=== PATIENT | male | born 1960 | race Asian ===

== ENCOUNTER 2017-02-13 20:48 | Emergency (ER) | payer MEDICARE ==
[~2017-02-13] VITALS: Ht 167.6 cm; Wt 80.0 kg
[2017-02-13 20:53] VITALS: Ht 167.6 cm; Wt 80.0 kg
[2017-02-13] MEDS ORDERED: OLANZAPINE (ODT) 5 MG TAB PO STA (21:33)
[2017-02-13] MEDS ORDERED: LORAZEPAM 1 MG TAB PO ONE (22:00)
[2017-02-13 22:09] LABS: BASOPHIL # 0.1 10^3/ul (0.0-0.1); BASOPHILS % 0.7 % (0.0-2.0); EOSINOPHILS # 0.1 10^3/ul (0.0-0.5); EOSINOPHILS % 1.9 % (0.0-7.0); HEMATOCRIT 41.4 % (42.0-52.0); HEMOGLOBIN 13.6 g/dl (14.0-18.0); LYMPHOCYTES # 2.5 10^3/ul (0.8-2.9); MEAN CORPUSCULAR HEMOGLOBIN 28.1 pg (29.0-33.0); MEAN CORPUSCULAR HGB CONC 32.9 g/dl (32.0-37.0); MEAN CORPUSCULAR VOLUME 85.5 fl (82.0-101.0); MEAN PLATELET VOLUME 9.9 fl (7.4-10.4); MONOCYTE # 0.6 10^3/ul (0.3-0.9); NEUTROPHILS % 55.3 % (39.0-77.0); PLATELET COUNT 254 10^3/UL (140-415); RED BLOOD COUNT 4.84 10^6/ul (4.70-6.10); RED CELL DISTRIBUTION WIDTH 12.9 % (11.5-14.5); WHITE BLOOD COUNT 7.3 10^3/ul (4.8-10.8)
[2017-02-13 22:33] LABS: ALANINE AMINOTRANSFERASE 78 IU/L (13-69); ALBUMIN 4.3 g/dl (3.3-4.9); ALBUMIN/GLOBULIN RATIO 1.38; ALKALINE PHOSPHATASE 66 IU/L (42-121); ANION GAP 17 (8-16); ASPARTATE AMINO TRANSFERASE 111 IU/L (15-46); BILIRUBIN,INDIRECT 0.3 mg/dl (0-1.1); BILIRUBIN,TOTAL 0.3 mg/dl (0.2-1.3); BLOOD UREA NITROGEN 6 mg/dl (7-20); CALCIUM 9.1 mg/dl (8.4-10.2); CARBON DIOXIDE 25 mmol/L (21-31); CHLORIDE 105 mmol/L (97-110); CREATININE 0.88 mg/dl (0.61-1.24); GLUCOSE 178 mg/dl (70-220); POTASSIUM 3.4 mmol/L (3.5-5.1); SODIUM 144 mmol/L (135-144); TOTAL PROTEIN 7.4 g/dl (6.1-8.1)
[2017-02-13 22:45] LABS: ETHANOL < 10.0 mg/dl
--- NOTE | 2017-02-13 22:52 | ERD ---
ER Documentation Chief Complaint Date/Time DATE: 02/13/17 TIME: 22:49 Chief Complaint rambling, but able to state where is his/name/time/situation- psych history HPI 57-year-old male brought in by ambulance for strange behavior. Bystanders called 911 when they saw him acting strange and saying things that did not make sense. Per EMS, the patient was alert and oriented and answering their questions. Here the patient is not answering any of my questions and stating " I plead the fifth". He seems very paranoid and is making statements that do not make sense. History is thus limited. ROS All systems reviewed and are negative except as per history of present illness. Allergies Allergies: Coded Allergies: No Known Drug Allergies (Verified Allergy, Mild, 03/01/10) PMhx/Soc History of Surgery: No Anesthesia Reaction: No Hx Neurological Disorder: No Hx Respiratory Disorders: No Hx Cardiac Disorders: No Hx Psychiatric Problems: Yes (SCHIZOPHRENIA) Hx Miscellaneous Medical Probl: No Hx Alcohol Use: No (denies) Hx Substance Use: No (denies) Hx Tobacco Use: No (denies) Smoking Status: Never smoker FmHx Family History: other (Unable to obtain) Physical Exam Vitals Vital Signs Date Time Temp Pulse Resp B/P Pulse Ox O2 Delivery O2 Flow Rate FiO2 02/14/17 02:30 96.6 58 16 115/70 98 Room Air 02/14/17 00:02 66 16 97 02/13/17 20:53 98.2 78 17 154/78 97 Physical Exam Const: No apparent distress, unkempt Head: Atraumatic Eyes: PERRLA ENT: Normal External Ears, Nose and Mouth. Neck: Full range of motion.. No swelling Resp: No respiratory distress Skin: No petechiae or rashes Ext: No cyanosis, or edema Neur: Awake and alert Psych: Paranoid mood and strange affect, rambling speech, speech content does not make sense Result Diagram: 02/13/17215002/13/172150 Results 24 hrs Laboratory Tests Test 02/13/17 21:51 02/14/17 01:00 White Blood Count 7.310^3/ul Red Blood Count 4.8410^6/ul Hemoglobin 13.6g/dl Hematocrit 41.4% Mean Corpuscular Volume 85.5fl Mean Corpuscular Hemoglobin 28.1pg Mean Corpuscular Hemoglobin Concent 32.9g/dl Red Cell Distribution Width 12.9% Platelet Count 33321^3/UL Mean Platelet Volume 9.9fl Neutrophils % 55.3% Lymphocytes % 34.0% Monocytes % 8.0% Eosinophils % 1.9% Basophils % 0.7% Nucleated Red Blood Cells % 0.0/100WBC Neutrophils # 4.010^3/ul Lymphocytes # 2.510^3/ul Monocytes # 0.610^3/ul Eosinophils # 0.110^3/ul Basophils # 0.110^3/ul Nucleated Red Blood Cells # 0.010^3/ul Sodium Level 144mmol/L Potassium Level 3.4mmol/L Chloride Level 105mmol/L Carbon Dioxide Level 25mmol/L Anion Gap 17 Blood Urea Nitrogen 6mg/dl Creatinine 0.88mg/dl Glucose Level 178mg/dl Calcium Level 9.1mg/dl Total Bilirubin 0.3mg/dl Direct Bilirubin 0.00mg/dl Indirect Bilirubin 0.3mg/dl Aspartate Amino Transf (AST/SGOT) 111IU/L Alanine Aminotransferase (ALT/SGPT) 78IU/L Alkaline Phosphatase 66IU/L Total Protein 7.4g/dl Albumin 4.3g/dl Globulin 3.10g/dl Albumin/Globulin Ratio 1.38 Ethyl Alcohol Level < 10.0mg/dl Urine Color YELLOW Urine Clarity CLEAR Urine pH 6.0 Urine Specific Sax[place] 1.014 Urine Ketones TRACEmg/dL Urine Nitrite NEGATIVEmg/dL Urine Bilirubin NEGATIVEmg/dL Urine Urobilinogen NEGATIVEmg/dL Urine Leukocyte Esterase NEGATIVELeu/ul Urine Microscopic RBC 0/HPF Urine Microscopic WBC 0/HPF Urine Hemoglobin NEGATIVEmg/dL Urine Glucose 3+mg/dL Urine Total Protein 1+mg/dl Urine Opiates Screen Negative Urine Barbiturates Negative Urine Amphetamines Screen Negative Urine Benzodiazepines Screen Negative Urine Cocaine Screen Negative Urine Cannabinoids Positive Current Medications Medications (Trade) Dose Ordered Sig/Stephon Route PRN Reason Start Time Stop Time Status Last Admin Dose Admin Olanzapine (Zyprexa Zydis) 10 mg ONCE STAT PO 02/13/17 21:33 02/13/17 21:35 DC 02/13/17 22:29 Lorazepam (Ativan) 1 mg ONCE ONCE PO 02/13/17 22:00 02/13/17 22:01 DC 02/13/17 22:21 Lorazepam (Ativan) 1 mg ONCE ONCE PO 02/14/17 03:30 02/14/17 03:31 DC 02/14/17 03:32 Procedures/MDM Labs CBC: no anemia or evidence of infection CMP: No evidence of electrolyte abnormality, renal failure, hypoglycemia. Mild transaminitis Alcohol level negative Urine drug screen positive for cannabinoids UA: no evidence of infection MDM Patient is presenting with what seems to be acute psychosis, possibly drug- induced. However it seems he has an underlying mental health problem. Patient' s vitals are stable and he does not seem to have any medical issues going on. I had him evaluated by tele-psychiatry and the doctor determined the patient needs to be placed on a 5150 hold for grave disability. I gave the patient Zyprexa and Ativan with minimal improvement in his symptoms. I have a low suspicion for an acute intracranial process at this time. Patient is awaiting PET evaluation for 5150, then will need transfer to a psychiatric facility. He told a psychiatrist that he is taking lithium, so lithium level was ordered and is pending. Departure Diagnosis: Primary Impression: Psychological disorder Condition: Serious Patient Instructions: Psychosis Referrals: COMM[facility]ITY CLIN[facility] YOU HAVE RECEIVED A MEDICAL SCREENING EXAM AND THE RESULTS INDICATE THAT YOU DO NOT HAVE A CONDITION THAT REQUIRES URGENT TREATMENT IN THE EMERGENCY DEPARTMENT. FURTHER EVALUATION AND TREATMENT OF YOUR CONDITION CAN WAIT UNTIL YOU ARE SEEN IN YOUR DOCTORS OFFICE WITHIN THE NEXT 1-2 DAYS. IT IS YOUR RESPONSIBILITY TO MAKE AN APPOINTMENT FOR FOLOW-UP CARE. IF YOU HAVE A PRIMARY DOCTOR --you should call your primary doctor and schedule an appointment IF YOU DO NOT HAVE A PRIMARY DOCTOR YOU CAN CALL OUR PHYSICIAN REFERRAL HOTLINE AT IF YOU CAN NOT AFFORD TO SEE A PHYSICIAN YOU CAN CHOSE FROM THE FOLLOWING [facility] [address] [facility] [address] [facility] [address] [facility] [address] [facility] [address] [place] [facility]. [address] Additional Instructions: Follow up with your psychiatrist tomorrow. AMBER JACKSON MD Feb 13, 2017 22:52
[2017-02-14 01:38] LABS: ADD UMIC YES; UR ASCORBIC ACID NEGATIVE (NEGATIVE); UR BILIRUBIN (Dip) NEGATIVE (NEGATIVE); UR BLOOD (Dip) NEGATIVE (NEGATIVE); UR CLARITY CLEAR (CLEAR); UR COLOR YELLOW (YELLOW); UR GLUCOSE (Dip) 3+ mg/dL (NEGATIVE); UR KETONES (Dip) TRACE mg/dL (NEGATIVE); UR LEUKOCYTE ESTERASE (Dip) NEGATIVE Leu/ul (NEGATIVE); UR NITRITE (Dip) NEGATIVE (NEGATIVE); UR RBC 0 /HPF (0-5); UR SPECIFIC GRAVITY (Dip) 1.014 (1.003-1.030); UR TOTAL PROTEIN (Dip) 1+ mg/dl (NEGATIVE); UR UROBILINOGEN (Dip) NEGATIVE (NEGATIVE)
[2017-02-14 02:06] LABS: BARBITURATES Negative (NEGATIVE); BENZODIAZEPINES Negative (NEGATIVE); CANNABINOIDS Positive (NEGATIVE); COCAINE Negative (NEGATIVE); OPIATES Negative (NEGATIVE)
[2017-02-14] MEDS ORDERED: LORAZEPAM 1 MG TAB PO ONE (03:30)
--- NOTE | 2017-02-14 03:31 | PSY ---
Date/Time of Note Date/Time of Note DATE: 02/14/17 TIME: 03:30 Psychiatric Subjective Eval Consent Pt consented to telemedicine: Yes Subjective Evaluation Patient location: emergency Chief Complaint: rambling, but able to state where is his/name/time/situation- psych history Medical history Problems Medical Problems: (1) Psychological disorder Status: Acute Allergies: Coded Allergies: No Known Drug Allergies (Verified Allergy, Mild, 03/01/10) Psychiatric Objective Eval Mental Status Examination: Laboratory Results Laboratory Tests Test 02/13/17 21:51 02/14/17 01:00 White Blood Count 7.310^3/ul Red Blood Count 4.8410^6/ul Hemoglobin 13.6g/dl Hematocrit 41.4% Mean Corpuscular Volume 85.5fl Mean Corpuscular Hemoglobin 28.1pg Mean Corpuscular Hemoglobin Concent 32.9g/dl Red Cell Distribution Width 12.9% Platelet Count 19414^3/UL Mean Platelet Volume 9.9fl Neutrophils % 55.3% Lymphocytes % 34.0% Monocytes % 8.0% Eosinophils % 1.9% Basophils % 0.7% Nucleated Red Blood Cells % 0.0/100WBC Neutrophils # 4.010^3/ul Lymphocytes # 2.510^3/ul Monocytes # 0.610^3/ul Eosinophils # 0.110^3/ul Basophils # 0.110^3/ul Nucleated Red Blood Cells # 0.010^3/ul Sodium Level 144mmol/L Potassium Level 3.4mmol/L Chloride Level 105mmol/L Carbon Dioxide Level 25mmol/L Anion Gap 17 Blood Urea Nitrogen 6mg/dl Creatinine 0.88mg/dl Glucose Level 178mg/dl Calcium Level 9.1mg/dl Total Bilirubin 0.3mg/dl Direct Bilirubin 0.00mg/dl Indirect Bilirubin 0.3mg/dl Aspartate Amino Transf (AST/SGOT) 111IU/L Alanine Aminotransferase (ALT/SGPT) 78IU/L Alkaline Phosphatase 66IU/L Total Protein 7.4g/dl Albumin 4.3g/dl Globulin 3.10g/dl Albumin/Globulin Ratio 1.38 Ethyl Alcohol Level < 10.0mg/dl Urine Color YELLOW Urine Clarity CLEAR Urine pH 6.0 Urine Specific [place] 1.014 Urine Ketones TRACEmg/dL Urine Nitrite NEGATIVEmg/dL Urine Bilirubin NEGATIVEmg/dL Urine Urobilinogen NEGATIVEmg/dL Urine Leukocyte Esterase NEGATIVELeu/ul Urine Microscopic RBC 0/HPF Urine Microscopic WBC 0/HPF Urine Hemoglobin NEGATIVEmg/dL Urine Glucose 3+mg/dL Urine Total Protein 1+mg/dl Urine Opiates Screen Negative Urine Barbiturates Negative Urine Amphetamines Screen Negative Urine Benzodiazepines Screen Negative Urine Cocaine Screen Negative Urine Cannabinoids Positive Assessment Additional comments: IDENTIFYING INFORMATION: 57 year old Male patient who is currently located at the hospital and for whom psychiatric consultation was requested. SOURCES OF INFORMATION: The patient who appears to be unreliable and the medical records; the nursing staff. CHIEF COMPLAINT: "one, two, three, four, five, six". HISTORY OF PRESENT ILLNESS: The patient was interviewed via telemedicine in the presence of and under the supervision of nursing staff of the hospital. The consent to conducting this interview via telemedicine was obtained by the nursing staff at the hospital. KADI Almaguer reports that the pt exhibited bizarre behavior at a store, saying that the [place] is in war. Per ER doc note, the patient was brought in by ambulance after 911 was called because the pt was exhibiting bizarre behavior. The patient would refuse to answer any questions to the emergency room physician, stating I plead the fifth . He appeared to be very paranoid and making nonsensical statements. Is not on a hold. Received Ativan and Zyprexa while in the ER. The patient was not able to participate in the interview In a very appropriate manner due to psychosis. He got upset several times during the interview, and decided to terminate the interview. The patient reports that he hears voices, then says that he does not hear voices. The patient reports drinking 1 drink per occasion. Does not drink everyday. Last drink was today. PAST MEDICAL HISTORY: Unable to assess, because the patient was not able to participate in the interview. CURRENT MEDICATIONS: lithium, unknown medication. ALLERGIES TO MEDICATIONS: Unable to assess, because the patient was not able to participate in the interview. SOCIAL HISTORY: Unable to assess, because the patient was not able to participate in the interview. LABORATORY TESTS: UDS positive for cannabinoids, urinalysis positive for glucose, protein; CBC with hemoglobin of 13.6, hematocrit 41.4, CMP with potassium of 3.4, AST 111 , ALT 78, alcohol was not detected. FAMILY HISTORY: Unable to assess, because the patient was not able to participate in the interview. REVIEW OF SYSTEMS: Unable to assess, because the patient was not able to participate in the interview. MENTAL STATUS EXAMINATION: General Appearance and Behavior: Agitated, appears to be responding to internal stimuli, uncooperative with most of the interview, distant and rude with the current interviewer, makes poor eye contact, poorly groomed, somewhat increased psychomotor activity, no abnormal movements noted. Speech: Normal rate, regular rhythm, increased latency, normal volume, decreased amount. Flow of thought: tangential, illogical, not goal-directed. Content of thought: positive for bizarre delusions; unable to assess further. Mood: Unable to assess, because the patient was not able to participate in the interview.. Affect: agitated, angry, flat, decreased range of reactivity. Attention: normal based on the interview. Insight: poor. Judgment: poor. Memory: Unable to assess, because the patient was not able to participate in the interview. Sensorium: alert and oriented to person, ccould not evaluate further. ASSESSMENT: The patient's presentation and history are consistent with the diagnosis of unspecified psychotic disorder. The patient presents with psychotic symptoms in the context of possible medication noncompliance. Afton I: unspecified psychotic disorder. Afton II: Deferred. Afton III: see PMH. Afton IV: social stressors. Afton V: GAF: 10. PLAN: - Medication management: Would start Zyprexa 5 mg by mouth twice a day, next dose to be administered at 8 AM on February 14 ( the patient already received 10 mg of Zyprexa by mouth while in the emergency room). Would start haloperidol 5 mg IM PRN severe agitation q4 hours. Would start diphenhydramine 50 mg IM PRN severe agitation q4 hours. Would start lorazepam 2 mg IM PRN severe agitation q4 hours Will defer to the inpatient psychiatry team for other medication changes. - Labs: please check lithium level. - Psychotherapy: Provided supportive psychotherapy and psychoeducation. - Disposition: Would recommend involuntary admission to the inpatient psychiatric unit given the severity of the patient's psychiatric condition and the fact that the patient is an imminent danger to self and/or others so long as the patient has been cleared medically for admission to psychiatry. Inpatient psychiatric admission is at this time the least restrictive environment where the patient can receive the psychiatric care that is needed. Would place on suicide precautions. The patient fulfills criteria for being placed on involuntary hold due to being a danger to self or others or gravely disabled. Discussed about the above plan with Dr. Johnson. JULIO FULTON MD Feb 14, 2017 03:31
[2017-02-14] MEDS ORDERED: LORAZEPAM 2 MG INJ ONE (04:26)
[2017-02-14] MEDS ORDERED: DIPHENHYDRAMINE 50 MG INJ IM ONE (04:30)
[2017-02-14] MEDS ORDERED: LORAZEPAM 2 MG INJ IM ONE ×2 (04:30→09:30)
[2017-02-14 09:00] VITALS: BP 147/88; PULSE 86; RESP 20; TEMP 98.3
== END 2017-02-14 14:49 ==
LOC: E/R 20:48
DX: F99 Mental disorder, not otherwise specified (principal)
CPT/HCPCS: 36415; 80053; 80178; 80306; 80307; 81001; 85025; 96372; 99285; J1200; J2060

== ENCOUNTER 2017-03-02 03:47 | Emergency (ER) | payer MEDICARE ==
[~2017-03-02] VITALS: Ht 172.7 cm; Wt 68.5 kg
[2017-03-02 03:55] VITALS: Ht 172.7 cm; Wt 68.5 kg
--- NOTE | 2017-03-02 04:53 | ERD ---
ER Documentation Chief Complaint Date/Time DATE: 03/02/17 TIME: 04:51 Chief Complaint nis toenails are bothering rite now, hx DM&depression HPI This is a 57-year-old male with past medical history for schizophrenia, diabetes and hypercholesterolemia, presents to the ER needing medication refill. Patient states he has been living in a psychiatric community and has been out of his medication for the last 2 weeks. Patient has also lost his glucometer test strips with lancets and states he needs refill of that as well. No complaints at this time. ROS All systems reviewed and are negative except as per history of present illness. Medications Home Meds Active Scripts Lancets (Blood Lancets) 1 Each Each, 1 EACH MC, #30 Prov:SOLOMON CASTANO NP 03/02/17 Lancing Device/Lancets (Accu-Chek Multiclix Lancet Kit) 1 Each Kit, 1 EACH MC, # 1 Prov:SOLOMON CASTANO NP 03/02/17 Blood-Glucose Meter (Advanced Glucose Meter) 1 Each Each, 1 EACH MC, #1 Prov:SOLOMON CASTANO NP 03/02/17 Aspirin* (Aspirin* EC) 81 Mg Tablet.dr, 81 MG PO DAILY, #15 TAB Prov:SOLOMON CASTANO NP 03/02/17 Metformin* (Glucophage*) 1,000 Mg Tablet, 1000 MG PO DAILY, #15 TAB Prov:SOLOMON CASTANO NP 03/02/17 Atorvastatin Calcium (Atorvastatin Calcium) 10 Mg Tablet, 5 MG PO QHS, #15 TAB Prov:SOLOMON CASTANO NP 03/02/17 Aripiprazole* (Abilify*) 15 Mg Tablet, 15 MG PO DAILY, #15 TAB Prov:SOLOMON CASTANO NP 03/02/17 Allergies Allergies: Coded Allergies: No Known Drug Allergies (Verified Allergy, Mild, 03/01/10) PMhx/Soc History of Surgery: No Anesthesia Reaction: No Hx Neurological Disorder: No Hx Respiratory Disorders: No Hx Cardiac Disorders: No Hx Psychiatric Problems: Yes (SCHIZOPHRENIA) Hx Miscellaneous Medical Probl: No Hx Alcohol Use: No (denies) Hx Substance Use: No (denies) Hx Tobacco Use: Yes Smoking Status: Current every day smoker Physical Exam Vitals Vital Signs Date Time Temp Pulse Resp B/P Pulse Ox O2 Delivery O2 Flow Rate FiO2 03/02/17 03:55 98.5 85 18 138/72 99 Physical Exam Const: Alert, no acute distress Head: Atraumatic Eyes: Normal Conjunctiva ENT: Normal External Ears, Nose and Mouth. Neck: Full range of motion..~ No meningismus. Resp: Clear to auscultation bilaterally Cardio: Regular rate and rhythm, no murmurs Abd: Soft, non tender, non distended. Normal bowel sounds Skin: No petechiae or rashes Back: No midline or flank tenderness Ext: No cyanosis, or edema Neur: Awake and alert Psych: Normal Mood and Affect Procedures/MDM MDM: This is a 57-year-old male, with past medical history for diabetes mellitus , depression and schizophrenia, presenting to emergency department for medication refill. Patient states he is out of Abilify 15 mg, atorvastatin 5 mg , metformin 1000 mg, aspirin 81 mg and Topamax however he does not know the dosage of this medication. Patient also states he needs refill of glucometer, test strips, lancets and alcohol wipes. Patient has no complaints at this time. Patient's vitals are stable. Appears to be asymptomatic. Patient is appropriate for outpatient management will be given prescriptions for Abilify, atorvastatin, metformin and aspirin. Patient also be given prescription for glucometer, test strips and lancets. Instructed patient to follow-up with primary care provider in the next 2-3 days for reassessment. Resources provided with discharge paperwork. Return to ED for any high fever, chest pain, difficulty breathing, shortness breath, wheezing, vomiting, diarrhea , abdominal pain or any new or worsening symptoms. Patient verbalizes understanding. All questions answered at discharge. Departure Diagnosis: Primary Impression: Encounter for medication refill Condition: Stable SOLOMON CASTANO NP Mar 02, 2017 04:53
[2017-03-02] MEDS ORDERED: ARIP15TA2 PO (05:02)
[2017-03-02] MEDS ORDERED: ATOR10TA65 PO (05:02)
[2017-03-02] MEDS ORDERED: MTF1000T PO (05:02)
[2017-03-02] MEDS ORDERED: ASPI-664 PO (05:02)
[2017-03-02] MEDS ORDERED: BLOO-1202 MC (05:02)
[2017-03-02] MEDS ORDERED: LANC1KIT MC (05:02)
[2017-03-02] MEDS ORDERED: LANC-831 MC (05:02)
== END 2017-03-02 05:15 | disposition home or self-care (01) ==
LOC: FTE 03:47
DX: Z76.0 Encounter for issue of repeat prescription (principal); E11.9 Type 2 diabetes mellitus without complications; F17.210 Nicotine dependence, cigarettes, uncomplicated; Z79.84 Long term (current) use of oral hypoglycemic drugs; Z79.82 Long term (current) use of aspirin
CPT/HCPCS: 82962; 99282

== ENCOUNTER 2017-03-14 05:55 | Emergency (ER) | payer SELFPAY ==
[~2017-03-14] VITALS: Ht 172.7 cm; Wt 64.5 kg
[~2017-03-14 05:55] MED LIST: ARIP15TA2 PO; ASPI-664 PO; ATOR10TA65 PO; BLOO-1202 MC; LANC-831 MC; LANC1KIT MC; MTF1000T PO
[2017-03-14 06:00] VITALS: Ht 172.7 cm; Wt 64.5 kg
== END 2017-03-14 06:10 | disposition left against medical advice (07) ==
LOC: FTE 05:55
DX: Z53.21 Procedure and treatment not carried out due to patient leaving prior to being seen by health care provider (principal)

== ENCOUNTER 2017-03-26 21:25 | Emergency (ER) | payer SELFPAY ==
[~2017-03-26] VITALS: Ht 182.9 cm; Wt 65.0 kg
[2017-03-26 21:37] VITALS: Ht 182.9 cm; Wt 65.0 kg
== END 2017-03-26 22:01 | disposition left against medical advice (07) ==
LOC: FTE 21:25
DX: Z53.21 Procedure and treatment not carried out due to patient leaving prior to being seen by health care provider (principal)

== ENCOUNTER 2017-04-01 23:58 | Emergency (ER) | payer SELFPAY ==
[~2017-04-01] VITALS: Ht 162.6 cm; Wt 65.0 kg
[2017-04-02 00:01] VITALS: Ht 162.6 cm; Wt 65.0 kg
== END 2017-04-02 00:35 | disposition left against medical advice (07) ==
LOC: FTE 23:58
DX: Z53.21 Procedure and treatment not carried out due to patient leaving prior to being seen by health care provider (principal)

== ENCOUNTER 2017-04-06 04:36 | Emergency (ER) | payer MEDICARE ==
[~2017-04-06] VITALS: Ht 180.3 cm; Wt 65.5 kg
[2017-04-06 04:43] VITALS: Ht 180.3 cm; Wt 65.5 kg
[2017-04-06] MEDS ORDERED: PROPOFOL 100 ML ONE (05:04)
--- NOTE | 2017-04-06 05:08 | ERA ---
ER Documentation Chief Complaint Date/Time DATE: 04/06/17 TIME: 05:05 Chief Complaint here for med refill HPI 37-year-old male presenting with a chief complaint of lacerations on the back of his heels bilaterally. Patient stated these have gotten worse over the past few days. States that the abrasions/lacerations occurred due to chronic wearing of his shoes. Patient is currently schizophrenic is on Abilify. Patient is not requesting any medications as described in the nursing notes. I have reiterated this to the patient and he has reassured me that he has enough medications including enough metformin and Abilify at his home. Patient has no other complaints and describes no other associated manifestations. Nursing notes have been reviewed and are consistent with history given. ROS All systems reviewed and are negative except as per history of present illness. Medications Home Meds Active Scripts Lancets (Blood Lancets) 1 Each Each, 1 EACH MC, #30 Prov:SOLOMON CASTANO NP 03/02/17 Lancing Device/Lancets (Accu-Chek Multiclix Lancet Kit) 1 Each Kit, 1 EACH MC, # 1 Prov:SOLOMON CASTANO NP 03/02/17 Blood-Glucose Meter (Advanced Glucose Meter) 1 Each Each, 1 EACH MC, #1 Prov:SOLOMON CASTANO NP 03/02/17 Aspirin* (Aspirin* EC) 81 Mg Tablet.dr, 81 MG PO DAILY, #15 TAB Prov:SOLOMON CASTANO NP 03/02/17 Metformin* (Glucophage*) 1,000 Mg Tablet, 1000 MG PO DAILY, #15 TAB Prov:SOLOMON CASTANO NP 03/02/17 Atorvastatin Calcium (Atorvastatin Calcium) 10 Mg Tablet, 5 MG PO QHS, #15 TAB Prov:SOLOMON CASTANO NP 03/02/17 Aripiprazole* (Abilify*) 15 Mg Tablet, 15 MG PO DAILY, #15 TAB Prov:SOLOMON CASTANO NP 03/02/17 Allergies Allergies: Coded Allergies: No Known Drug Allergies (Verified Allergy, Mild, 03/01/10) PMhx/Soc History of Surgery: No Anesthesia Reaction: No Hx Neurological Disorder: No Hx Respiratory Disorders: No Hx Cardiac Disorders: No Hx Psychiatric Problems: Yes (SCHIZOPHRENIA) Hx Miscellaneous Medical Probl: No Hx Alcohol Use: No (denies) Hx Substance Use: No (denies) Hx Tobacco Use: Yes Physical Exam Vitals Vital Signs Date Time Temp Pulse Resp B/P Pulse Ox O2 Delivery O2 Flow Rate FiO2 04/06/17 04:43 98.0 100 20 109/56 99 Physical Exam Const: Well-developed home was appearing 57-year-old male in no acute distress lying on the gurney with initial presentation. Mild foul odor. Head: Atraumatic Eyes: Normal Conjunctiva. PERRLA. EOMI bilaterally. ENT: Normal External Ears, Nose and Mouth. Neck: Full range of motion..~ No meningismus. Resp: Clear to auscultation bilaterally Cardio: Regular rate and rhythm, no murmurs Abd: Soft, non tender, non distended. Normal bowel sounds Skin: As noted in extremity exam Back: No midline or flank tenderness Ext: Mild abrasions/sores on the posterior ankles over the Achilles bilaterally. Mild sores on the bottom of his feet spanning 2-3 cm. No opening. No defect in the epidermis. No signs of infection. No cyanosis, or edema Neur: Awake and alert. And O 3 Psych: Signs of schizophrenia Results 24 hrs Current Medications Medications (Trade) Dose Ordered Sig/Stephon Route PRN Reason Start Time Stop Time Status Last Admin Dose Admin Propofol (Diprivan) 100 ml @ ud STK-MED ONCE .ROUTE 04/06/17 05:04 04/06/17 05:05 DC Procedures/MDM 57-year-old male with history of schizophrenia presenting with a chief complaint of abrasions on his posterior ankles bilaterally due to chronic wearing of shoes. Patient has diabetes type 2. No open wounds. Antibiotics are not necessary at this time. Multiple sores on the bottom of his feet. Mild foul odor. No concern for diabetic foot. Patient is requesting a Band- Aid. Physical examination revealed abrasions on the back of the heels as he had described. Area was washed by the nursing staff. Antibiotic ointment applied. Band-Aids given. I have spoke with the patient regarding their condition and future management. They have verbally responded that they understand their status and treatment plan. The patients vitals are stable, and their current condition is appropriate for discharge. The patient will be given discharge instructions with return precautions. Departure Diagnosis: Primary Impression: Abrasion Condition: Stable Additional Instructions: Follow up with your PCP within the next 1-3 days for a more thorough evaluation and a possible referral to a specialist. Return the the emergency department immediately if symptoms worsen or change. If you have any questions regarding medications, ask your pharmacist or us before you leave. If any adverse reactions occur while taking your medications, discontinue the treatment and return to the emergency department immediately. Take your medications as directed, and complete the entire course of treatment. JHOAN CORBETT PA-C Apr 06, 2017 05:08
== END 2017-04-06 05:40 | disposition home or self-care (01) ==
LOC: FTE 04:36
DX: S90.511A Abrasion, right ankle, initial encounter (principal); S90.512A Abrasion, left ankle, initial encounter; E11.9 Type 2 diabetes mellitus without complications; X58.XXXA Exposure to other specified factors, initial encounter; Y92.9 Unspecified place or not applicable; Z79.82 Long term (current) use of aspirin; Z79.84 Long term (current) use of oral hypoglycemic drugs; Z87.891 Personal history of nicotine dependence
CPT/HCPCS: 99281

== ENCOUNTER 2017-06-20 14:30 | Emergency (ER) | payer MEDICARE, OTHER ==
[~2017-06-20] VITALS: Ht 177.8 cm; Wt 65.2 kg
[2017-06-20 14:35] VITALS: Ht 177.8 cm; Wt 65.2 kg
[2017-06-20] MEDS ORDERED: ASPI-664 PO (15:47)
[2017-06-20] MEDS ORDERED: SULF1TAB31 PO (15:47)
[2017-06-20] MEDS ORDERED: QUET50TA16 PO (15:47)
[2017-06-20] MEDS ORDERED: METF500T4 PO (15:47)
[2017-06-20] MEDS ORDERED: CEPH-443 PO (15:47)
[2017-06-20] MEDS ORDERED: CEFTRIAXONE 1 GM INJ IM ONE (16:00)
--- NOTE | 2017-06-20 17:13 | ERD ---
ER Documentation Chief Complaint Chief Complaint left foot/leg redness x 4 days HPI 57-year-old male patient with a past medical history of type 2 diabetes, schizoaffective disorder presents to the ED complaining of an abrasion to his left foot that started 1 week ago. States that he got new sandals and it started to rub the top of his foot which then caused an abrasion. Denies any fever, chills, nausea, vomiting., loss of sensation, loss of range of motion. Reports no falls. States that he takes metformin, seroquel, and aspirin and is also here for a medication refill. ROS All systems reviewed and are negative except as per history of present illness. Medications Home Meds Active Scripts Aspirin* (Aspirin* EC) 81 Mg Tablet., 81 MG PO DAILY, #30 TAB take with food Prov:BETHANIE POWELL PA-C 06/20/17 Metformin* (Glucophage*) 500 Mg Tab, 500 MG PO BID, #60 TAB Prov:BETHANIE POWELL PA-C 06/20/17 Quetiapine Fumarate* (Seroquel*) 50 Mg Tablet, 50 MG PO DAILY, #30 TAB Prov:BETHANIE POWELL PA-C 06/20/17 Sulfamethoxazole/Trimethoprim* (Bactrim Ds* Tablet) 1 Each Tablet, 1 TAB PO BID for 7 Days, #14 TAB Prov:BETHANIE POWELL PA-C 06/20/17 Cephalexin* (Keflex*) 500 Mg Capsule, 500 MG PO QID for 7 Days, CAP Prov:BETHANIE POWELL PA-C 06/20/17 Lancets (Blood Lancets) 1 Each Each, 1 EACH MC, #30 Prov:SOLOMON CASTANO NP 03/02/17 Lancing Device/Lancets (Accu-Chek Multiclix Lancet Kit) 1 Each Kit, 1 EACH MC, # 1 Prov:SOLOMON CASTANO NP 03/02/17 Blood-Glucose Meter (Advanced Glucose Meter) 1 Each Each, 1 EACH MC, #1 Prov:SOLOMON CASTANO NP 03/02/17 Aspirin* (Aspirin* EC) 81 Mg Tablet., 81 MG PO DAILY, #15 TAB Prov:SOLOMON CASTANO NP 03/02/17 Metformin* (Glucophage*) 1,000 Mg Tablet, 1000 MG PO DAILY, #15 TAB Prov:SOLOMON CASTANO NP 03/02/17 Atorvastatin Calcium (Atorvastatin Calcium) 10 Mg Tablet, 5 MG PO QHS, #15 TAB Prov:SOLOMON ACSTANO NP 03/02/17 Aripiprazole* (Abilify*) 15 Mg Tablet, 15 MG PO DAILY, #15 TAB Prov:SOLOMON CASTANO NP 03/02/17 Allergies Allergies: Coded Allergies: No Known Drug Allergies (Verified Allergy, Mild, 03/01/10) PMhx/Soc History of Surgery: No Anesthesia Reaction: No Hx Neurological Disorder: No Hx Respiratory Disorders: No Hx Cardiac Disorders: No Hx Psychiatric Problems: Yes (SCHIZOPHRENIA) Hx Miscellaneous Medical Probl: Yes (dm, chronic pain) Hx Alcohol Use: No Hx Substance Use: No Hx Tobacco Use: No Smoking Status: Never smoker Physical Exam Vitals Vital Signs Date Time Temp Pulse Resp B/P Pulse Ox O2 Delivery O2 Flow Rate FiO2 06/20/17 14:35 98.5 120 20 119/79 98 Physical Exam Const: [id number], well-nourished. In no acute distress. Head: Atraumatic, normocephalic Eyes: Normal Conjunctiva without injection ENT: Normal external ear, nose and mouth. Neck: Full range of motion. No meningismus. Resp: Clear to auscultation bilaterally. No wheezing, rhonchi, rales, or crackles. No accessory muscle use. No retractions. Cardio: Regular rate and rhythm, no murmurs Skin: No petechiae or rashes Back: No midline tenderness. No CVA tenderness. Ext: No cyanosis, or edema. Cap refill less than 2 seconds. Distal pulses intact bilaterally. Bilateral foot erythema with 4 cm abrasion noted on the dorsal aspect of patient's left foot with significant amount of dirt noted on the plantar surface of patient's bilateral feet. No lymphatic streaking. No purulent discharge. No fluctuance or induration. Neur: Awake and alert. Normal gait and coordination. Muscle strength 5/5. Sensation intact bilaterally. Psych: Normal Mood and Affect Results 24 hrs Current Medications Medications (Trade) Dose Ordered Sig/Stephon Route PRN Reason Start Time Stop Time Status Last Admin Dose Admin Ceftriaxone Sodium (Rocephin) 1 gm ONCE ONCE IM 06/20/17 16:00 12/7/17 16:01 DC 06/20/17 16:10 Procedures/MDM 57-year-old male patient with a past medical history of schizoaffective disorder and diabetes presents to the ED complaining of an abrasion to his left foot and wants a medication refill. Patient is afebrile and nontoxic- appearing. My supervising physician, Dr. Cervantes also evaluated patient at this time and stated that patient is appropriate for outpatient management. Patient will be given his first dose of ceftriaxone 1 g IM here in the ED. Patient will be given a prescription for Bactrim, Keflex to treat for his likely cellulitis. Low suspicion for DKA, anaphylaxis, scabies, SJS/TEN, TSS, Lyme's Disease, syphilis, RMSF, shingles, disseminated gonorrhea chlamydia, DIC, TTP, ITP, erythema multiforme, sepsis, necrotizing fascitis, gangrene, septic arthritis, osteomyelitis, fractures, dislocations, DVT, meningococcemia, allergic contact dermatitis, urticaria, eczema, tinea infection, or other emergent conditions. Discharge medications: ASA, Metformin, Seroquel, Bactrim, Keflex Follow up with primary care physician in 2 days for wound check. Educated patient on foot hygiene and that he should see a supervisor tunnel heading since he has diabetes. Instructed patient to return to the ED sooner for any worsening symptoms. Patient's questions were answered. Patient understood and agreed with discharge plan. Patient discharged stable. Departure Diagnosis: Primary Impression: Abrasion of foot Encounter type: initial encounter Laterality: right Qualified Code: S90.811A - Abrasion of right foot, initial encounter Additional Impression: Medication refill Condition: Stable Patient Instructions: Taking Medicine Safely, Cellulitis, Abrasion Referrals: COMMUNITY CLINICS YOU HAVE RECEIVED A MEDICAL SCREENING EXAM AND THE RESULTS INDICATE THAT YOU DO NOT HAVE A CONDITION THAT REQUIRES URGENT TREATMENT IN THE EMERGENCY DEPARTMENT. FURTHER EVALUATION AND TREATMENT OF YOUR CONDITION CAN WAIT UNTIL YOU ARE SEEN IN YOUR DOCTORS OFFICE WITHIN THE NEXT 1-2 DAYS. IT IS YOUR RESPONSIBILITY TO MAKE AN APPOINTMENT FOR FOLOW-UP CARE. IF YOU HAVE A PRIMARY DOCTOR --you should call your primary doctor and schedule an appointment IF YOU DO NOT HAVE A PRIMARY DOCTOR YOU CAN CALL OUR PHYSICIAN REFERRAL HOTLINE AT IF YOU CAN NOT AFFORD TO SEE A PHYSICIAN YOU CAN CHOSE FROM THE FOLLOWING COMMUNITY CLINICS [facility] [address] [facility] [address] [facility] [address] [facility] [address] [facility] [address] [facility] [address] [facility]. [facility] YOU HAVE RECEIVED A MEDICAL SCREENING EXAM AND THE RESULTS INDICATE THAT YOU DO NOT HAVE A CONDITION THAT REQUIRES URGENT TREATMENT IN THE EMERGENCY DEPARTMENT. FURTHER EVALUATION AND TREATMENT OF YOUR CONDITION CAN WAIT UNTIL YOU ARE SEEN IN YOUR DOCTORS OFFICE WITHIN THE NEXT 1-2 DAYS. IT IS YOUR RESPONSIBILITY TO MAKE AN APPOINTMENT FOR FOLOW-UP CARE. IF YOU HAVE A PRIMARY DOCTOR --you should call your primary doctor and schedule and appointment IF YOU DO NOT HAVE A PRIMARY DOCTOR YOU CAN CALL OUR PHYSICIAN REFERRAL HOTLINE AT . IF YOU CAN NOT AFFORD TO SEE A PHYSICIAN YOU CAN CHOSE FROM THE FOLLOWING [facility]: [facility] [address] [place] [address] [facility] [address] [place] [address] [facility] [address] [place] [address] [facility] Additional Instructions: Call your primary care doctor TOMORROW for an appointment during the next 2-3 days.See the doctor sooner or return here if your condition worsens before your appointment time. Follow up in 2 days in your clinic for wound check. BETHANIE POWELL PA-C Jun 20, 2017 17:13
== END 2017-06-20 17:21 | disposition home or self-care (01) ==
LOC: FTE 14:30
DX: S90.811A Abrasion, right foot, initial encounter (principal); E11.9 Type 2 diabetes mellitus without complications; X58.XXXA Exposure to other specified factors, initial encounter; Y92.9 Unspecified place or not applicable; Z76.0 Encounter for issue of repeat prescription; Z79.82 Long term (current) use of aspirin; Z79.84 Long term (current) use of oral hypoglycemic drugs
CPT/HCPCS: 96372; 99284; J0696

== ENCOUNTER 2017-06-24 20:08 | Emergency (ER) | payer SELFPAY ==
[~2017-06-24] VITALS: Ht 165.1 cm; Wt 66.2 kg
[~2017-06-24 20:08] MED LIST changes: +CEPH-443 PO; +METF500T4 PO; +QUET50TA16 PO; +SULF1TAB31 PO
[2017-06-24 20:41] VITALS: Ht 165.1 cm; Wt 66.2 kg
== END 2017-06-24 23:01 | disposition left against medical advice (07) ==
LOC: E/R 20:08
DX: Z53.21 Procedure and treatment not carried out due to patient leaving prior to being seen by health care provider (principal)

== ENCOUNTER 2017-06-26 01:21 | Emergency (ER) | payer MEDICARE ==
[~2017-06-26] VITALS: Ht 170.2 cm; Wt 70.0 kg
[2017-06-26 02:35] VITALS: Ht 170.2 cm; Wt 70.0 kg
[2017-06-26 04:31] LABS: BASOPHILS % 0.5 % (0.0-2.0); EOSINOPHILS # 0.2 10^3/ul (0.0-0.5); EOSINOPHILS % 3.5 % (0.0-7.0); HEMATOCRIT 39.7 % (42.0-52.0); HEMOGLOBIN 13.3 g/dl (14.0-18.0); LYMPHOCYTES # 2.3 10^3/ul (0.8-2.9); LYMPHOCYTES % 38.9 % (15.0-51.0); MEAN CORPUSCULAR HEMOGLOBIN 29.1 pg (29.0-33.0); MEAN CORPUSCULAR HGB CONC 33.5 g/dl (32.0-37.0); MEAN CORPUSCULAR VOLUME 86.9 fl (82.0-101.0); MEAN PLATELET VOLUME 9.7 fl (7.4-10.4); MONOCYTE # 0.4 10^3/ul (0.3-0.9); MONOCYTES % 7.1 % (0.0-11.0); NEUTROPHILS % 49.8 % (39.0-77.0); PLATELET COUNT 253 10^3/UL (140-415); RED BLOOD COUNT 4.57 10^6/ul (4.70-6.10); RED CELL DISTRIBUTION WIDTH 12.9 % (11.5-14.5); WHITE BLOOD COUNT 5.9 10^3/ul (4.8-10.8)
[2017-06-26 04:41] LABS: ALANINE AMINOTRANSFERASE 38 IU/L (13-69); ALBUMIN 3.7 g/dl (3.3-4.9); ALBUMIN/GLOBULIN RATIO 1.27; ALKALINE PHOSPHATASE 67 IU/L (42-121); ANION GAP 14 (8-16); ASPARTATE AMINO TRANSFERASE 23 IU/L (15-46); BILIRUBIN,INDIRECT 0.4 mg/dl (0-1.1); BILIRUBIN,TOTAL 0.4 mg/dl (0.2-1.3); BLOOD UREA NITROGEN 16 mg/dl (7-20); CALCIUM 9.2 mg/dl (8.4-10.2); CARBON DIOXIDE 24 mmol/L (21-31); CHLORIDE 103 mmol/L (97-110); CREATININE 0.75 mg/dl (0.61-1.24); GLUCOSE 214 mg/dl (70-220); SODIUM 137 mmol/L (135-144); TOTAL PROTEIN 6.6 g/dl (6.1-8.1)
--- NOTE | 2017-06-26 04:44 | PSY ---
Date/Time of Note Date/Time of Note DATE: 06/26/17 TIME: 04:39 Psychiatric Subjective Eval Subjective Evaluation Chief Complaint: bib self, cc: medication refill, psych med consult Reason for consult: anxious History of present illness patient is a 57 yo male homeless with PPH Of schizophrenia who came to the ER requesting refill on his medication , he states that he has been feeling confused and worried since he has been homeless but denies any hallucination, no si or hi, he denies feeling depressed, he does not want to go back on seroquel or abilify because they gave him side effects but states that when he was on haldol it helped, he is alert and oriented, logical and goal directed, no delusion noted, very pleasant and polite. Hospitalization: yes Family History denies Medical history Problems Medical Problems: (1) Abrasion Status: Acute (2) Abrasion of foot Status: Acute (3) Encounter for medication refill Status: Acute (4) Medication refill Status: Acute (5) Patient left after triage Status: Acute (6) Patient left after triage Status: Acute (7) Patient left without being seen Status: Acute (8) Patient left without being seen Status: Acute (9) Patient left without being seen Status: Acute (10) Psychological disorder Status: Acute Allergies: Coded Allergies: No Known Drug Allergies (Verified Allergy, Mild, 03/01/10) Substance Abuse Substance use: No known substance abuse Social History Marital status: single DPA/Conservatorship: No Occupation/Alf: no Psychiatric Objective Eval Physical Examination: Physical Examination: Applicable Sleep: Insomnia Appetite: Decreased Energy: Decreased Interest: Adequate Mental Status Examination: Appearance: Groomed Eye Contact: Good Behavior: Cooperative Speech: Clear AFFECT: Appropriate Mood: Anxious Though Process: Linear Thought Content: Normal Suicidal: No Homicidal: No On 72 hour hold: No Orientation: x3 Cognition: Alert Insight: Intact Judgement: Intact Attention Span: Intact Laboratory Results Laboratory Tests Test 06/26/17 03:50 White Blood Count 5.910^3/ul Red Blood Count 4.5710^6/ul Hemoglobin 13.3g/dl Hematocrit 39.7% Mean Corpuscular Volume 86.9fl Mean Corpuscular Hemoglobin 29.1pg Mean Corpuscular Hemoglobin Concent 33.5g/dl Red Cell Distribution Width 12.9% Platelet Count 58935^3/UL Mean Platelet Volume 9.7fl Neutrophils % 49.8% Lymphocytes % 38.9% Monocytes % 7.1% Eosinophils % 3.5% Basophils % 0.5% Nucleated Red Blood Cells % 0.0/100WBC Neutrophils # 3.010^3/ul Lymphocytes # 2.310^3/ul Monocytes # 0.410^3/ul Eosinophils # 0.210^3/ul Basophils # 0.010^3/ul Nucleated Red Blood Cells # 0.010^3/ul Assessment and Plan Assessment/Diagnosis [place] I: schizophrenia per hx anxiety do nos [place] II: deferred [place] III: as per record [place] IV: homeless [place] V: gaf 65 Recommendation/Plan Medication Management haldol 2 mg po qhs for one month benadryl 50 mg po qhs for one month Follow-up/Disposition In my opinion,for this patient, outpatient care is the least restrictive option. Based on available evidence, ~this condition CAN be safely treated at a lower level of care effective today. Patient is stable without ~clear and convincing evidence of imminent danger due to mental illness that requires acute inpatient psychiatric ~care as the least restrictive alternative. Please discharge patient with referral for follow up to a outpatient mental health clinic for psychotherapy and medication SETH SALDIVAR MD Jun 26, 2017 04:44
[2017-06-26 04:46] LABS: ACETAMINOPHEN < 10.0 ug/ml (10.0-30.0); ETHANOL < 10.0 mg/dl; SALICYLATE < 1.0 mg/dl (5.0-30.0)
--- NOTE | 2017-06-26 05:30 | ERD ---
ER Documentation Chief Complaint Chief Complaint bib self, cc: medication refill, psych med consult HPI 57-year-old male initially checked in saying he wants a medication refill. Upon further review, patient states that his hearing voices but he wanted with the voices are telling him ROS All systems reviewed and are negative except as per history of present illness. Medications Home Meds Active Scripts Aspirin* (Aspirin* EC) 81 Mg Tablet.dr, 81 MG PO DAILY, #30 TAB take with food Prov:BETHANIE POWELL PA-C 06/20/17 Metformin* (Glucophage*) 500 Mg Tab, 500 MG PO BID, #60 TAB Prov:BETHANIE POWELL PA-C 06/20/17 Quetiapine Fumarate* (Seroquel*) 50 Mg Tablet, 50 MG PO DAILY, #30 TAB Prov:BETHANIE POWELL PA-C 06/20/17 Sulfamethoxazole/Trimethoprim* (Bactrim Ds* Tablet) 1 Each Tablet, 1 TAB PO BID for 7 Days, #14 TAB Prov:BETHANIE POWELL PA-C 06/20/17 Cephalexin* (Keflex*) 500 Mg Capsule, 500 MG PO QID for 7 Days, CAP Prov:BETHANIE POWELL PA-C 06/20/17 Lancets (Blood Lancets) 1 Each Each, 1 EACH MC, #30 Prov:SOLOMON CASTANO NP 03/02/17 Lancing Device/Lancets (Accu-Chek Multiclix Lancet Kit) 1 Each Kit, 1 EACH MC, # 1 Prov:SOLOMON CASTANO NP 03/02/17 Blood-Glucose Meter (Advanced Glucose Meter) 1 Each Each, 1 EACH MC, #1 Prov:SOLOMON CASTANO NP 03/02/17 Aspirin* (Aspirin* EC) 81 Mg Tablet., 81 MG PO DAILY, #15 TAB Prov:SOLOMON CASTANO NP 03/02/17 Metformin* (Glucophage*) 1,000 Mg Tablet, 1000 MG PO DAILY, #15 TAB Prov:SOLOMON CASTANO NP 03/02/17 Atorvastatin Calcium (Atorvastatin Calcium) 10 Mg Tablet, 5 MG PO QHS, #15 TAB Prov:SOLOMON CASTANO NP 03/02/17 Aripiprazole* (Abilify*) 15 Mg Tablet, 15 MG PO DAILY, #15 TAB Prov:SOLOMON CASTANO NP 03/02/17 Allergies Allergies: Coded Allergies: No Known Drug Allergies (Verified Allergy, Mild, 03/01/10) PMhx/Soc History of Surgery: No Anesthesia Reaction: No Hx Neurological Disorder: No Hx Respiratory Disorders: No Hx Cardiac Disorders: No Hx Psychiatric Problems: Yes (SCHIZOPHRENIA) Hx Miscellaneous Medical Probl: Yes (dm, chronic pain) Hx Alcohol Use: No Hx Substance Use: No Hx Tobacco Use: No Smoking Status: Never smoker Physical Exam Vitals Vital Signs Date Time Temp Pulse Resp B/P Pulse Ox O2 Delivery O2 Flow Rate FiO2 06/26/17 02:35 98.9 89 18 149/86 100 Physical Exam Const: [] Head: Atraumatic Eyes: Normal Conjunctiva ENT: Normal External Ears, Nose and Mouth. Neck: Full range of motion..~ No meningismus. Resp: Clear to auscultation bilaterally Cardio: Regular rate and rhythm, no murmurs Abd: Soft, non tender, non distended. Normal bowel sounds Skin: No petechiae or rashes Back: No midline or flank tenderness Ext: No cyanosis, or edema Neur: Awake and alert Psych: Normal Mood and Affect Result Diagram: 06/26/17 0350 06/26/17 0350 Results 24 hrs Laboratory Tests Test 06/26/17 03:50 White Blood Count 5.910^3/ul Red Blood Count 4.5710^6/ul Hemoglobin 13.3g/dl Hematocrit 39.7% Mean Corpuscular Volume 86.9fl Mean Corpuscular Hemoglobin 29.1pg Mean Corpuscular Hemoglobin Concent 33.5g/dl Red Cell Distribution Width 12.9% Platelet Count 84840^3/UL Mean Platelet Volume 9.7fl Neutrophils % 49.8% Lymphocytes % 38.9% Monocytes % 7.1% Eosinophils % 3.5% Basophils % 0.5% Nucleated Red Blood Cells % 0.0/100WBC Neutrophils # 3.010^3/ul Lymphocytes # 2.310^3/ul Monocytes # 0.410^3/ul Eosinophils # 0.210^3/ul Basophils # 0.010^3/ul Nucleated Red Blood Cells # 0.010^3/ul Sodium Level 137mmol/L Potassium Level 4.0mmol/L Chloride Level 103mmol/L Carbon Dioxide Level 24mmol/L Anion Gap 14 Blood Urea Nitrogen 16mg/dl Creatinine 0.75mg/dl Glucose Level 214mg/dl Calcium Level 9.2mg/dl Total Bilirubin 0.4mg/dl Direct Bilirubin 0.00mg/dl Indirect Bilirubin 0.4mg/dl Aspartate Amino Transf (AST/SGOT) 23IU/L Alanine Aminotransferase (ALT/SGPT) 38IU/L Alkaline Phosphatase 67IU/L Total Protein 6.6g/dl Albumin 3.7g/dl Globulin 2.90g/dl Albumin/Globulin Ratio 1.27 Salicylates Level < 1.0mg/dl Acetaminophen Level < 10.0ug/ml Ethyl Alcohol Level < 10.0mg/dl Procedures/MDM Patient's behavioral symptoms have stabilized while in the department. Patient is medically cleared and appropriate for psychiatric evaluation and work up. No e/o neurologic, toxic, infectious, or metabolic cause. Patient evaluated by telemetry psychiatry. Found to be stable for outpatient management. Discharge home with Haldol and Benadryl per telemetry psychiatry Departure Diagnosis: Primary Impression: Psychoses Psychosis type: unspecified psychosis type Qualified Code: F29 - Psychosis, unspecified psychosis type Condition: Stable NATALIE JALLOH Jun 26, 2017 05:30
[2017-06-26] MEDS ORDERED: HAL2 PO (05:32)
[2017-06-26] MEDS ORDERED: BEN25 PO (05:32)
[2017-06-26 06:09] VITALS: BP 104/55; PULSE 85; RESP 18; TEMP 98.3
== END 2017-06-26 06:11 | disposition home or self-care (01) ==
LOC: E/R 01:21
DX: F29 Unspecified psychosis not due to a substance or known physiological condition (principal); E11.9 Type 2 diabetes mellitus without complications; Z79.82 Long term (current) use of aspirin; Z79.84 Long term (current) use of oral hypoglycemic drugs
CPT/HCPCS: 36415; 80053; 80306; 85025; 99283

== ENCOUNTER 2017-07-01 19:33 | Emergency (ER) | payer MEDICARE ==
[~2017-07-01] VITALS: Ht 162.6 cm; Wt 67.5 kg
[~2017-07-01 19:33] MED LIST changes: +BEN25 PO; +HAL2 PO
[2017-07-01 19:40] VITALS: Ht 162.6 cm; Wt 67.5 kg
[2017-07-01] MEDS ORDERED: METF500T4 PO (21:04)
--- NOTE | 2017-07-01 21:06 | ERD ---
ER Documentation Chief Complaint Chief Complaint med refill- metformin HPI 57-year-old male presents for med refill request on his metformin for type 2 diabetes. Denies any polyuria, polydipsia, fevers, shortness of breath, abdominal pain or vomiting. ROS All systems reviewed and are negative except as per history of present illness. Medications Home Meds Active Scripts Metformin* (Glucophage*) 500 Mg Tab, 500 MG PO BID, #60 TAB Prov:VAMSI CRAFT MD 07/01/17 Diphenhydramine Hcl* (Benadryl*) 25 Mg Cap, 25 MG PO QHS Y for AGITATION/ANXIETY , #30 CAP Prov:NATALIE JALLOH. 06/26/17 Haloperidol* (Haldol*) 2 Mg Tab, 2 MG PO QHS for 30 Days, TAB Prov:NATALIE JALLOH S. 06/26/17 Aspirin* (Aspirin* EC) 81 Mg Tablet.dr, 81 MG PO DAILY, #30 TAB take with food Prov:BETHANIE POWELL PA-C 06/20/17 Metformin* (Glucophage*) 500 Mg Tab, 500 MG PO BID, #60 TAB Prov:BETHANIE POWELL PA-C 06/20/17 Quetiapine Fumarate* (Seroquel*) 50 Mg Tablet, 50 MG PO DAILY, #30 TAB Prov:BETHANIE POWELL PA-C 06/20/17 Sulfamethoxazole/Trimethoprim* (Bactrim Ds* Tablet) 1 Each Tablet, 1 TAB PO BID for 7 Days, #14 TAB Prov:BETHANIE POWELL PA-C 06/20/17 Cephalexin* (Keflex*) 500 Mg Capsule, 500 MG PO QID for 7 Days, CAP Prov:BETHANIE POWELL PA-C 06/20/17 Lancets (Blood Lancets) 1 Each Each, 1 EACH MC, #30 Prov:SOLOMON CASTANO NP 03/02/17 Lancing Device/Lancets (Accu-Chek Multiclix Lancet Kit) 1 Each Kit, 1 EACH MC, # 1 Prov:SOLOMON CASTANO NP 03/02/17 Blood-Glucose Meter (Advanced Glucose Meter) 1 Each Each, 1 EACH MC, #1 Prov:SOLOMON CASTANO NP 03/02/17 Aspirin* (Aspirin* EC) 81 Mg Tablet., 81 MG PO DAILY, #15 TAB Prov:SOLOMON CASTANO EDGE DYER 03/02/17 Metformin* (Glucophage*) 1,000 Mg Tablet, 1000 MG PO DAILY, #15 TAB Prov:SOLOMON CASTANO EDGE DYER 03/02/17 Atorvastatin Calcium (Atorvastatin Calcium) 10 Mg Tablet, 5 MG PO QHS, #15 TAB Prov:SOLOMON CASTANO EDGE DYER 03/02/17 Aripiprazole* (Abilify*) 15 Mg Tablet, 15 MG PO DAILY, #15 TAB Prov:SOLOMON CASTANO EDGE DYER 03/02/17 Allergies Allergies: Coded Allergies: No Known Drug Allergies (Verified Allergy, Mild, 03/01/10) PMhx/Soc History of Surgery: No Anesthesia Reaction: No Hx Neurological Disorder: No Hx Respiratory Disorders: No Hx Cardiac Disorders: No Hx Psychiatric Problems: Yes (SCHIZOPHRENIA) Hx Miscellaneous Medical Probl: Yes (dm, chronic pain) Hx Alcohol Use: No Hx Substance Use: No Hx Tobacco Use: No Smoking Status: Never smoker Physical Exam Vitals Vital Signs Date Time Temp Pulse Resp B/P Pulse Ox O2 Delivery O2 Flow Rate FiO2 07/01/17 19:40 97.8 101 20 127/72 98 Physical Exam Const: [] Alert, no apparent distress. Head: Atraumatic Eyes: Normal Conjunctiva ENT: Normal External Ears, Nose and Mouth. Neck: Full range of motion..~ No meningismus. Resp: Clear to auscultation bilaterally Cardio: Regular rate and rhythm, no murmurs Abd: Soft, non tender, non distended. Normal bowel sounds Skin: No petechiae or rashes Back: No midline or flank tenderness Ext: No cyanosis, or edema Neur: Awake and alert Psych: Normal Mood and Affect Procedures/MDM Patient presents for med refill request for Glucophage. Patient declines a Accu -Chek today and states that his recent blood sugars have been "normal ". Patient is no signs or symptoms to suggest serious illness. He will given refills of his Glucophage and instructions for primary care follow-up. The patient was stable with no new complaints during the ER course. Clinically, there is no current evidence to suggest meningitis, sepsis, acute abdomen, pneumonia, acute coronary syndrome, pulmonary embolism, or any other emergent condition appearing to require further evaluation or hospitalization. The patient should certainly return for any new or worsening symptoms per the aftercare instructions. They should otherwise follow-up with her primary care doctor for reevaluation this week. Departure Diagnosis: Primary Impression: Encounter for medication refill Condition: Stable Patient Instructions: Taking Medicine Safely, DIABETES, General Info Referrals: NO PRIMARY,CARE PHYSICIAN (PCP) Additional Instructions: Recheck for new or worsening symptoms or primary care doctor. VAMSI CRAFT MD Jul 01, 2017 21:06
== END 2017-07-01 21:44 | disposition home or self-care (01) ==
LOC: FTE 19:33
DX: Z76.0 Encounter for issue of repeat prescription (principal); E11.9 Type 2 diabetes mellitus without complications; Z79.84 Long term (current) use of oral hypoglycemic drugs; Z79.82 Long term (current) use of aspirin
CPT/HCPCS: 99281

== ENCOUNTER 2017-07-02 19:25 | Emergency (ER) | payer MEDICARE ==
[~2017-07-02] VITALS: Ht 170.2 cm; Wt 66.5 kg
[2017-07-02 19:32] VITALS: Ht 170.2 cm; Wt 66.5 kg
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
== END 2017-07-02 21:25 | disposition home or self-care (01) ==
LOC: FTE 19:25
DX: Z48.01 Encounter for change or removal of surgical wound dressing (principal); E11.9 Type 2 diabetes mellitus without complications; F17.210 Nicotine dependence, cigarettes, uncomplicated; Z79.82 Long term (current) use of aspirin; Z79.84 Long term (current) use of oral hypoglycemic drugs
CPT/HCPCS: 99281

== ENCOUNTER 2017-07-06 14:39 | Emergency (ER) | payer MEDICARE ==
[~2017-07-06] VITALS: Ht 177.8 cm; Wt 75.0 kg
[2017-07-06 14:56] VITALS: Ht 177.8 cm; Wt 75.0 kg
[2017-07-06] MEDS ORDERED: IBUP-1542 PO (17:02)
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
== END 2017-07-06 17:22 | disposition left against medical advice (07) ==
LOC: FTE 14:39
DX: R07.81 Pleurodynia (principal); M79.622 Pain in left upper arm; E11.9 Type 2 diabetes mellitus without complications; F17.210 Nicotine dependence, cigarettes, uncomplicated; Z79.84 Long term (current) use of oral hypoglycemic drugs; Z79.82 Long term (current) use of aspirin
CPT/HCPCS: 99283

== ENCOUNTER 2017-07-06 21:11 | Emergency (ER) | payer SELFPAY ==
[~2017-07-06] VITALS: Ht 175.3 cm; Wt 75.0 kg
[~2017-07-06 21:11] MED LIST changes: +IBUP-1542 PO
[2017-07-06 21:18] VITALS: Ht 175.3 cm; Wt 75.0 kg
== END 2017-07-06 23:06 | disposition left against medical advice (07) ==
LOC: FTE 21:11
DX: Z53.21 Procedure and treatment not carried out due to patient leaving prior to being seen by health care provider (principal)

== ENCOUNTER 2017-07-08 02:37 | Emergency (ER) | payer MEDICARE ==
[~2017-07-08] VITALS: Ht 167.6 cm; Wt 65.5 kg
[2017-07-08 03:07] VITALS: Ht 167.6 cm; Wt 65.5 kg
[2017-07-08] MEDS ORDERED: PIPER-TAZO 3.375 GM IV (PMX) 50 ML IVPB STA (05:07)
--- NOTE | 2017-07-08 05:30 | ERD ---
ER Documentation Chief Complaint Chief Complaint body aches, hx- neuropathy of shoulders HPI This is a 57-year-old male comes in with complaints of body aches right foot pain. He says right foot is been getting increasingly swollen and erythematous. Patient on outpatient Bactrim and Keflex with no relief. No fevers no chills. No other current issues. ROS All systems reviewed and are negative except as per history of present illness. Medications Home Meds Active Scripts Ibuprofen* (Motrin*) 600 Mg Tab, 600 MG PO Q6, #30 TAB Prov:BETY CALLAHAN PA-C 07/06/17 Metformin* (Glucophage*) 500 Mg Tab, 500 MG PO BID, #60 TAB Prov:VAMSI CRAFT MD 07/01/17 Diphenhydramine Hcl* (Benadryl*) 25 Mg Cap, 25 MG PO QHS Y for AGITATION/ANXIETY , #30 CAP Prov:NATALIE JALLOH 06/26/17 Haloperidol* (Haldol*) 2 Mg Tab, 2 MG PO QHS for 30 Days, TAB Prov:NATALIE JALLOH 06/26/17 Aspirin* (Aspirin* EC) 81 Mg Tablet.dr, 81 MG PO DAILY, #30 TAB take with food Prov:BETHANIE POWELL PA-C 06/20/17 Metformin* (Glucophage*) 500 Mg Tab, 500 MG PO BID, #60 TAB Prov:BETHANIE POWELL PA-C 06/20/17 Quetiapine Fumarate* (Seroquel*) 50 Mg Tablet, 50 MG PO DAILY, #30 TAB Prov:BETHANIE POWELL PA-C 06/20/17 Sulfamethoxazole/Trimethoprim* (Bactrim Ds* Tablet) 1 Each Tablet, 1 TAB PO BID for 7 Days, #14 TAB Prov:BETHANIE POWELL PA-C 06/20/17 Cephalexin* (Keflex*) 500 Mg Capsule, 500 MG PO QID for 7 Days, CAP Prov:BETHANIE POWELL PA-C 06/20/17 Lancets (Blood Lancets) 1 Each Each, 1 EACH MC, #30 Prov:SOLOMON CASTANO NP 03/02/17 Lancing Device/Lancets (Accu-Chek Multiclix Lancet Kit) 1 Each Kit, 1 EACH MC, # 1 Prov:SOLOMON CASTANO GAYE 03/02/17 Blood-Glucose Meter (Advanced Glucose Meter) 1 Each Each, 1 EACH , #1 Prov:SOLOMON CASTANOJaymie HUIZAR 03/02/17 Aspirin* (Aspirin* EC) 81 Mg Tablet.dr, 81 MG PO DAILY, #15 TAB Prov:SOLOMON CASTANOJaymie HUIZAR 03/02/17 Metformin* (Glucophage*) 1,000 Mg Tablet, 1000 MG PO DAILY, #15 TAB Prov:SOLOMON CASTANOJaymie HUIZAR 03/02/17 Atorvastatin Calcium (Atorvastatin Calcium) 10 Mg Tablet, 5 MG PO QHS, #15 TAB Prov:SOLOMON CASTANOJaymie HUIZAR 03/02/17 Aripiprazole* (Abilify*) 15 Mg Tablet, 15 MG PO DAILY, #15 TAB Prov:SOLOMON CASTANOJaymie HUIZAR 03/02/17 Allergies Allergies: Coded Allergies: No Known Drug Allergies (Verified Allergy, Mild, 03/01/10) PMhx/Soc History of Surgery: No Anesthesia Reaction: No Hx Neurological Disorder: No Hx Respiratory Disorders: No Hx Cardiac Disorders: No Hx Psychiatric Problems: Yes (SCHIZOPHRENIA) Hx Miscellaneous Medical Probl: Yes (dm, chronic pain) Hx Alcohol Use: Yes Hx Substance Use: Yes (MARIJUANA, METH) Hx Tobacco Use: Yes Smoking Status: Current every day smoker Physical Exam Vitals Vital Signs Date Time Temp Pulse Resp B/P Pulse Ox O2 Delivery O2 Flow Rate FiO2 07/08/17 03:07 97.8 99 20 125/76 100 Physical Exam Const: [] Head: Atraumatic Eyes: Normal Conjunctiva ENT: Normal External Ears, Nose and Mouth. Neck: Full range of motion..~ No meningismus. Resp: Clear to auscultation bilaterally Cardio: Regular rate and rhythm, no murmurs Abd: Soft, non tender, non distended. Normal bowel sounds Skin: No petechiae or rashes Back: No midline or flank tenderness Ext: 42 saturating ulceration with surrounding erythema and induration Neur: Awake and alert Psych: Normal Mood and Affect Results 24 hrs Current Medications Medications (Trade) Dose Ordered Sig/Stephon Route PRN Reason Start Time Stop Time Status Last Admin Dose Admin Piperacillin Sod/ Tazobactam Sod (Zosyn 3.375gm/ 50 ml (Pmx)) 50 ml @ 100 mls/hr ONCE STAT IVPB 07/08/17 05:07 07/08/17 05:36 Procedures/MDM Medical decision-makin-year-old male with diabetic infected foot ulcer with failure of outpatient management. Started on Zosyn post blood cultures. Admitted to hospitalist. Departure Diagnosis: Primary Impression: Diabetic foot infection Additional Impression: Diabetic foot ulcer Diabetic foot ulcer location: unspecified part of foot Diabetes mellitus type : type 2 Laterality: right Non-pressure ulcer stage: unspecified non- pressure ulcer stage Qualified Code: E11.621 - Diabetic ulcer of right foot associated with type 2 diabetes mellitus, unspecified part of foot, unspecified ulcer stage Condition: Serious NATALIE JALLOH Jul 08, 2017 05:30
== END 2017-07-08 06:49 | disposition left against medical advice (07) ==
LOC: FTE 02:37 → E/R 06:49
DX: E11.621 Type 2 diabetes mellitus with foot ulcer (principal); L97.518 Non-pressure chronic ulcer of other part of right foot with other specified severity; F17.210 Nicotine dependence, cigarettes, uncomplicated; Z79.82 Long term (current) use of aspirin
CPT/HCPCS: 99282

== ENCOUNTER 2017-07-12 22:35 | Emergency (ER) | payer SELFPAY ==
[~2017-07-12] VITALS: Ht 175.3 cm; Wt 69.0 kg
[2017-07-12 22:47] VITALS: Ht 175.3 cm; Wt 69.0 kg
== END 2017-07-13 02:42 | disposition left against medical advice (07) ==
LOC: FTE 22:35
DX: Z53.21 Procedure and treatment not carried out due to patient leaving prior to being seen by health care provider (principal)

== ENCOUNTER 2017-07-20 04:45 | Emergency (ER) | END 2017-07-20 07:20 | disposition home or self-care (01) ==

== ENCOUNTER 2017-07-21 19:05 | Emergency (ER) | END 2017-07-21 21:52 | disposition home or self-care (01) ==

== ENCOUNTER 2017-07-29 19:14 | Emergency (ER) | END 2017-07-29 20:19 | disposition home or self-care (01) ==

== ENCOUNTER 2017-07-30 21:17 | Emergency (ER) | END 2017-07-31 03:44 | disposition left against medical advice (07) ==

== ENCOUNTER 2017-08-08 05:33 | Emergency (ER) | END 2017-08-08 07:00 | disposition home or self-care (01) ==

== ENCOUNTER 2017-08-14 08:53 | Emergency (ER) | END 2017-08-14 09:12 | disposition left against medical advice (07) ==

== ENCOUNTER 2017-08-15 11:04 | Emergency (ER) | END 2017-08-15 11:56 | disposition left against medical advice (07) ==

== ENCOUNTER 2017-08-16 03:31 | Emergency (ER) | END 2017-08-16 04:10 | disposition left against medical advice (07) ==

== ENCOUNTER 2017-08-26 23:32 | Emergency (ER) | END 2017-08-27 02:53 | disposition home or self-care (01) ==

== ENCOUNTER 2017-09-04 01:20 | Emergency (ER) | END 2017-09-04 03:13 | disposition home or self-care (01) ==

== ENCOUNTER 2017-09-07 18:49 | Emergency (ER) | END 2017-09-07 21:25 | disposition home or self-care (01) ==

== ENCOUNTER 2017-09-24 01:03 | Emergency (ER) | END 2017-09-24 01:04 | disposition left against medical advice (07) ==